=== PATIENT | male | born 1945 | race Asian ===

== ENCOUNTER 2017-12-05 15:02 | Inpatient (IN) | payer MEDICAID, OTHER ==
[~2017-12-05] VITALS: Ht 167.6 cm; Wt 73.0 kg
[2017-12-05] MEDS ORDERED: FAMOTIDINE 20 MG/2 ML IVP ONE (15:30)
[2017-12-05] MEDS ORDERED: SODIUM CHLORIDE FLUSH 10ML SYR IVF ONE ×2 (15:30)
[2017-12-05] MEDS ORDERED: SODIUM CHLORIDE 0.9% 1,000ML IVBOLUS ONE (15:30)
[2017-12-05 15:49] LABS: BASOPHILS % (AUTO) 0 % (0-1); EOSINOPHILS # (AUTO) 0.01 x10^3/uL (0-0.4); EOSINOPHILS % (AUTO) 0 % (1-7); LYMPHOCYTES # (AUTO) 0.76 x10^3/uL (1-3.4); LYMPHOCYTES % (AUTO) 8 % (22-44); MD NO; MEAN CORPUSCULAR HGB CONC 32.7 g/dL (33.2-36.2); MEAN CORPUSCULAR VOLUME 88.8 fL (81-97); MEAN PLATELET VOLUME 5.9 fL (7.4-10.4); MONOCYTES % (AUTO) 9 % (2-9); NEUTROPHILS # (AUTO) 8.42 x10^3/uL (1.8-6.8); NEUTROPHILS % (AUTO) 83 % (42-75); PLATELET COUNT 350 x10^3/uL (130-400); RED BLOOD COUNT 4.75 x10^6/uL (4.38-5.82); RED CELL DISTRIBUTION WIDTH 13.2 % (9.4-14.8)
[2017-12-05] MEDS ORDERED: INSU300I SQ-INSULIN (15:50)
[2017-12-05] MEDS ORDERED: MONT10TA9 PO (15:51)
[2017-12-05] MEDS ORDERED: INSU100C SQ-INSULIN (15:51)
[2017-12-05] MEDS ORDERED: AMLO10TA6 PO (15:51)
[2017-12-05] MEDS ORDERED: MULT-6 PO (15:52)
[2017-12-05] MEDS ORDERED: ATOR20TA9 PO (15:52)
[2017-12-05 15:55] LABS: ALANINE AMINOTRANSFERASE 31 U/L (12-78); ALBUMIN 4.3 g/dL (3.4-5.0); CALCIUM 8.9 mg/dL (8.5-10.1); CHLORIDE 77 mmol/L (98-107); CREATININE 1.01 mg/dL (0.7-1.3)
[2017-12-05 15:58] LABS: ALKALINE PHOSPHATASE 66 U/L (45-117); BILIRUBIN,TOTAL 0.8 mg/dL (0.2-1.0); TOTAL PROTEIN 7.8 g/dL (6.4-8.2)
[2017-12-05 16:00] LABS: TROPONIN I 0.073 ng/mL (0.000-0.045)
[2017-12-05] MEDS ORDERED: FAMOTIDINE 20 MG/2 ML ONE (16:11)
[2017-12-05 16:29] LABS: ANION GAP 12 mmol/L (5-15)
[2017-12-05] MEDS ORDERED: ASPIRIN 81 MG TABLET CHEW ONE (16:37)
[2017-12-05] MEDS ORDERED: SODIUM CHLORIDE 0.9% 1,000 ML IV ONE (17:00)
[2017-12-05] MEDS ORDERED: ASPIRIN 81 MG TABLET CHEW PO ONE (17:00)
[2017-12-05] MEDS ORDERED: SODIUM CHLORIDE 0.9% 1,000 ML IV SCH (17:14)
[2017-12-05] MEDS ORDERED: hydrALAzine 20 MG/ML, 1ML IVPush PRN (17:30)
[2017-12-05] MEDS ORDERED: BISACODYL 10 MG SUPP PR PRN (17:30)
[2017-12-05] MEDS ORDERED: POLYETHYLENE GLYCOL 17 GM PACKET PO PRN (17:30)
[2017-12-05 17:53] LABS: MICROSCOPIC INDICATED
[2017-12-05] MEDS: ENOXAPARIN 40 MG/0.4 ML SQ SCH (18:08)
[2017-12-05] MEDS: INSULIN LISPRO 100 UNITS/ML, PEN SQ-INSULIN SCH ×2 (18:08→20:57)
[2017-12-05 18:16] LABS: CULTURE INDICATED? NO
[2017-12-05 18:37] VITALS: BP 154/76
[2017-12-05 19:06] LABS: CHLORIDE,URINE RANDOM 108 mmol/L; POTASSIUM,URINE RANDOM 84 mmol/L; SODIUM,URINE RANDOM 57 mmol/L
[2017-12-05 19:35] LABS: ANION GAP 10 mmol/L (5-15); CALCIUM 8.1 mg/dL (8.5-10.1); CHLORIDE 79 mmol/L (98-107)
[2017-12-05 19:40] LABS: CREATININE 0.89 mg/dL (0.7-1.3)
[2017-12-05] MEDS: ATORVASTATIN 20 MG TABLET PO SCH (20:58)
[2017-12-05] MEDS: INSULIN GLARGINE 100 UNITS/ML, PEN SQ-INSULIN SCH (20:58)
[2017-12-05 21:03] VITALS: BP 150/66
[2017-12-05 21:11] LABS: OSMOLALITY,URINE 685 mOsm/kg (500-850)
[2017-12-05 23:13] LABS: ANION GAP 8 mmol/L (5-15); CHLORIDE 82 mmol/L (98-107)
[2017-12-05 23:15] LABS: CREATININE 0.72 mg/dL (0.7-1.3)
[2017-12-06 02:03] LABS: TROPONIN I 0.089 ng/mL (0.000-0.045)
[2017-12-06 03:09] LABS: BASOPHILS # (AUTO) 0.02 x10^3/uL (0-0.1); BASOPHILS % (AUTO) 0 % (0-1); EOSINOPHILS % (AUTO) 1 % (1-7); LYMPHOCYTES # (AUTO) 1.66 x10^3/uL (1-3.4); LYMPHOCYTES % (AUTO) 17 % (22-44); MD NO; MEAN CORPUSCULAR HEMOGLOBIN 29.6 pg (27.5-34.5); MEAN CORPUSCULAR HGB CONC 33.7 g/dL (33.2-36.2); MEAN CORPUSCULAR VOLUME 87.6 fL (81-97); MEAN PLATELET VOLUME 5.7 fL (7.4-10.4); MONOCYTES # (AUTO) 1.41 x10^3/uL (0.2-0.8); MONOCYTES % (AUTO) 14 % (2-9); NEUTROPHILS # (AUTO) 6.76 x10^3/uL (1.8-6.8); NEUTROPHILS % (AUTO) 68 % (42-75); PLATELET COUNT 322 x10^3/uL (130-400); RED BLOOD COUNT 4.46 x10^6/uL (4.38-5.82); RED CELL DISTRIBUTION WIDTH 12.8 % (9.4-14.8)
[2017-12-06 03:21] LABS: ANION GAP 11 mmol/L (5-15); CALCIUM 8.1 mg/dL (8.5-10.1); CHLORIDE 81 mmol/L (98-107); CREATININE 0.75 mg/dL (0.7-1.3)
[2017-12-06 04:00] VITALS: BP 156/77
[2017-12-06] MEDS: INSULIN LISPRO 100 UNITS/ML, PEN SQ-INSULIN SCH ×4 (07:00→21:23)
[2017-12-06 07:24] LABS: ANION GAP 10 mmol/L (5-15); CALCIUM 7.8 mg/dL (8.5-10.1); CHLORIDE 82 mmol/L (98-107); CREATININE 0.74 mg/dL (0.7-1.3)
[2017-12-06] MEDS ORDERED: PANTOPRAZOLE 40 MG IV IVPush SCH (07:30)
[2017-12-06 07:34] LABS: FREE T4 (FREE THYROXINE) 1.08 ng/dL (0.76-1.46)
[2017-12-06] MEDS: AMLODIPINE 10 MG TAB PO SCH (07:56)
[2017-12-06] MEDS ORDERED: MAGNESIUM SULFATE IN WATER 50 ML IV ONE (08:00)
[2017-12-06] MEDS ORDERED: POTASSIUM CHLORIDE 20 MEQ TAB.ER.PRT PO ONE ×2 (08:00)
[2017-12-06 11:33] LABS: CHLORIDE 80 mmol/L (98-107); CREATININE 0.81 mg/dL (0.7-1.3)
[2017-12-06 11:45] LABS: ANION GAP 11 mmol/L (5-15)
[2017-12-06] MEDS ORDERED: SODIUM CHLORIDE 3% 500 ML IV SCH (13:00)
[2017-12-06 15:48] LABS: CALCIUM 7.8 mg/dL (8.5-10.1); CREATININE 0.81 mg/dL (0.7-1.3)
[2017-12-06 15:55] LABS: ANION GAP 12 mmol/L (5-15); CHLORIDE 81 mmol/L (98-107)
[2017-12-06] MEDS: ENOXAPARIN 40 MG/0.4 ML SQ SCH (16:30)
[2017-12-06] MEDS ORDERED: SODIUM CHLORIDE 0.9% 1,000 ML IV SCH ×2 (17:14)
[2017-12-06] MEDS: ATORVASTATIN 20 MG TABLET PO SCH (21:19)
[2017-12-06] MEDS: INSULIN GLARGINE 100 UNITS/ML, PEN SQ-INSULIN SCH (21:23)
[2017-12-07 04:00] VITALS: BP 152/64
[2017-12-07] MEDS: INSULIN LISPRO 100 UNITS/ML, PEN SQ-INSULIN SCH ×4 (08:53→21:12)
[2017-12-07] MEDS: AMLODIPINE 10 MG TAB PO SCH (08:53)
[2017-12-07 13:36] LABS: CHLORIDE 87 mmol/L (98-107)
[2017-12-07 13:44] LABS: ANION GAP 10 mmol/L (5-15); CALCIUM 7.7 mg/dL (8.5-10.1); CREATININE 0.89 mg/dL (0.7-1.3)
[2017-12-07] MEDS: FUROSEMIDE 40 MG/4 ML IV SCH ×2 (16:16→21:09)
[2017-12-07] MEDS: ENOXAPARIN 40 MG/0.4 ML SQ SCH (16:16)
[2017-12-07] MEDS: ATORVASTATIN 20 MG TABLET PO SCH (21:09)
[2017-12-07] MEDS: INSULIN GLARGINE 100 UNITS/ML, PEN SQ-INSULIN SCH (21:12)
[2017-12-08 04:00] VITALS: BP 128/60
[2017-12-08] MEDS: INSULIN LISPRO 100 UNITS/ML, PEN SQ-INSULIN SCH ×4 (07:00→20:18)
[2017-12-08] MEDS: AMLODIPINE 10 MG TAB PO SCH (08:30)
[2017-12-08 10:13] LABS: ANION GAP 11 mmol/L (5-15); CALCIUM 7.8 mg/dL (8.5-10.1); CHLORIDE 89 mmol/L (98-107)
[2017-12-08] MEDS: POTASSIUM CHLORIDE 20 MEQ TAB.ER.PRT PO SCH ×2 (11:11→17:02)
[2017-12-08 11:41] VITALS: BP 162/68
[2017-12-08] MEDS: FUROSEMIDE 20 MG/2 ML IV SCH (17:02)
[2017-12-08] MEDS: ENOXAPARIN 40 MG/0.4 ML SQ SCH (17:03)
[2017-12-08] MEDS: ATORVASTATIN 20 MG TABLET PO SCH (20:16)
[2017-12-08] MEDS: INSULIN GLARGINE 100 UNITS/ML, PEN SQ-INSULIN SCH (20:17)
[2017-12-08 20:27] VITALS: BP 144/69
[2017-12-09 00:29] VITALS: BP 136/77
[2017-12-09 04:56] LABS: CHLORIDE 93 mmol/L (98-107)
[2017-12-09 05:02] LABS: ANION GAP 11 mmol/L (5-15); CALCIUM 8.5 mg/dL (8.5-10.1); CREATININE 0.93 mg/dL (0.7-1.3)
[2017-12-09 06:53] VITALS: BP 123/69
[2017-12-09] MEDS: AMLODIPINE 10 MG TAB PO SCH (07:59)
[2017-12-09] MEDS: FUROSEMIDE 20 MG/2 ML IV SCH ×2 (07:59→17:03)
[2017-12-09] MEDS: POTASSIUM CHLORIDE 20 MEQ TAB.ER.PRT PO SCH ×2 (07:59→17:03)
[2017-12-09] MEDS: INSULIN LISPRO 100 UNITS/ML, PEN SQ-INSULIN SCH ×4 (07:59→21:01)
[2017-12-09 12:10] VITALS: BP 131/67
[2017-12-09] MEDS: ENOXAPARIN 40 MG/0.4 ML SQ SCH (17:03)
[2017-12-09 19:49] VITALS: BP 148/77
[2017-12-09] MEDS: ATORVASTATIN 20 MG TABLET PO SCH (21:00)
[2017-12-09] MEDS: INSULIN GLARGINE 100 UNITS/ML, PEN SQ-INSULIN SCH (21:02)
[2017-12-10 01:38] VITALS: BP 120/69
[2017-12-10 04:47] LABS: CHLORIDE 98 mmol/L (98-107)
[2017-12-10 04:51] LABS: ANION GAP 9 mmol/L (5-15); CALCIUM 8.8 mg/dL (8.5-10.1); CREATININE 1.06 mg/dL (0.7-1.3)
[2017-12-10] MEDS: INSULIN LISPRO 100 UNITS/ML, PEN SQ-INSULIN SCH (07:54)
[2017-12-10 08:09] VITALS: BP 152/74
[2017-12-10] MEDS: AMLODIPINE 10 MG TAB PO SCH (10:19)
[2017-12-10] MEDS: POTASSIUM CHLORIDE 20 MEQ TAB.ER.PRT PO SCH (10:19)
[2017-12-10] MEDS: FUROSEMIDE 20 MG/2 ML IV SCH (10:19)
== END 2017-12-10 11:40 | disposition home or self-care (01) | DRG 641 ==
LOC: ED 16:10 → EDIP 16:55 → CCU 17:59 → 3NW 12-08 11:28
PROVIDERS: ADMIT Hospitalist; ATTEND Hospitalist
DX: E87.1 Hypo-osmolality and hyponatremia (principal); E87.70 Fluid overload, unspecified; E11.65 Type 2 diabetes mellitus with hyperglycemia; E78.5 Hyperlipidemia, unspecified; I25.10 Atherosclerotic heart disease of native coronary artery without angina pectoris; K21.9 Gastro-esophageal reflux disease without esophagitis; Z87.11 Personal history of peptic ulcer disease; Z79.899 Other long term (current) drug therapy; Z90.49 Acquired absence of other specified parts of digestive tract; Z80.3 Family history of malignant neoplasm of breast; Z80.8 Family history of malignant neoplasm of other organs or systems; Z87.891 Personal history of nicotine dependence
CPT/HCPCS: 36415; 74022; 99285; S0028; 70450; 71250; 76700; 80048; 80053; 81001; 82436; 82962; 83690; 83735; 83935; 84100; 84133; 84295; 84300; 84439; 84443; 84484; 85025; 86677; 87081; 93005; 93306; 96372; 96374; G0378; J1650; J1940; J1815; J7030